=== PATIENT | female | born 1990 | race Hispanic/Latino ===

== ENCOUNTER 2022-07-02 23:57 | Inpatient (IN) | payer OTHER ==
[2022-06-30 10:21] LABS: Hemoglobin 13.5 g/dL (12.0-15.5); Platelet Count 247 10x3/uL (150-450)
[2022-06-30 11:07] LABS: Syphilis Antibody Nonreactive (Nonreactive); Syphilis Antibody Index 0.05 S/CO (<1.00 Non-Reactive)
[2022-06-30 11:09] LABS: HBSAg Index 0.14 S/CO (0-0.99); Hep B Surf Ag Non-Reactive S/CO (NonReactive)
[~2022-07-02 23:57] MED LIST: Acetaminophen 500 MG TAB PO PRN; Bicitra 30 ML UDCUP PO PRN; CEFAZOLIN 2 GM in Sodium Chloride 0.9% 100 ML IVPB SCH; Carboprost 250 MCG/ML AMP IM PRN; Diphenoxylate HCl/Atropine Tablet PO PRN; Famotidine/PF 20 mg/2ml Vial SLOW IVP PRN; Lactated Ringer's 1,000 ML IV SCH; Methylergonovine 0.2 MG/ML VIAL IM PRN; Misoprostol 200 MCG TAB PR PRN; NS w/ Oxytocin 30 units 500 ML IV SCH; Ondansetron PF 4 MG/2 ML Vial IVP PRN; Promethazine HCl 25 MG/ML VIAL IM PRN; Tranexamic Acid 1,000 MG/10 ML VIAL IVP PRN; hydrALAZINE 20 MG/ML VIAL SLOW IVP PRN
[2022-07-03] MEDS ORDERED: Meperidine HCl/PF 25 MG/ML VIAL SLOW IVP PRN (10:12)
[2022-07-03] MEDS ORDERED: diphenhydrAMINE 50 MG/ML VIAL IVP PRN (10:12)
[2022-07-03] MEDS ORDERED: Promethazine HCl 25 MG/ML VIAL IM PRN ×2 (10:12→19:56)
[2022-07-03] MEDS ORDERED: HYDROmorphone 2 MG/ML VIAL SLOW IVP PRN (10:12)
[2022-07-03] MEDS ORDERED: Fentanyl 100 MCG/2 ML VIAL SLOW IVP PRN (10:12)
[2022-07-03] MEDS ORDERED: Promethazine HCl 25 MG SUPP PR PRN (10:12)
[2022-07-03] MEDS ORDERED: Moisturizing Cream (Eucerin) 113 GM JAR TOP PRN (10:12)
[2022-07-03] MEDS ORDERED: Ondansetron HCl/PF 4 MG/2 ML Vial IVP PRN (10:12)
[2022-07-03] MEDS ORDERED: Naloxone HCl 0.4 mg/ml Vial IV PRN (10:12)
[2022-07-03] MEDS ORDERED: Ondansetron PF 4 MG/2 ML Vial IVP PRN ×2 (10:12→19:56)
[2022-07-03] MEDS ORDERED: Naloxone HCl 0.4 mg/ml Vial IVP PRN ×2 (10:12)
[2022-07-03] MEDS ORDERED: Communication Order-Pharmacy FS SCH (10:15)
[2022-07-03] MEDS ORDERED: Ketorolac Tromethamine 30 MG/ML VIAL IVP SCH (10:15)
[2022-07-03] MEDS ORDERED: Morphine PF 10 MG/10 ML VIAL ONE (11:22)
[2022-07-03] MEDS ORDERED: Fentanyl 100 MCG/2 ML VIAL ONE (11:22)
[2022-07-03] MEDS ORDERED: Dexamethasone 4 mg/ml Vial ONE (11:22)
[2022-07-03] MEDS ORDERED: Ondansetron PF 4 MG/2 ML Vial ONE (11:22)
[2022-07-03] MEDS ORDERED: Oxytocin 10 UNITS/ML VIAL ONE (11:22)
[2022-07-03] MEDS ORDERED: Famotidine/PF 20 mg/2ml Vial ONE (11:37)
[2022-07-03] MEDS ORDERED: CEFAZOLIN 2 GM VIAL ONE (11:37)
[2022-07-03] MEDS: Ketorolac Tromethamine 30 MG/ML VIAL IVP PRN (16:56)
[2022-07-03] MEDS ORDERED: Boostrix 0.5 ML (Tdap) VIAL (>/=7 yrs of age) IM ONE (19:56)
[2022-07-03] MEDS ORDERED: Bisacodyl 10 MG SUPP PR PRN (19:56)
[2022-07-03] MEDS ORDERED: diphenhydrAMINE 25 MG CAP PO PRN (19:56)
[2022-07-03] MEDS ORDERED: Varicella virus, LIVE 0.5 ML VIAL SC ONE (19:56)
[2022-07-03] MEDS ORDERED: Lanolin Ointment 7 GM TUBE TOP PRN (19:56)
[2022-07-03] MEDS ORDERED: hydrALAZINE 20 MG/ML VIAL SLOW IVP PRN (19:56)
[2022-07-03] MEDS ORDERED: Measles/Mumps/Rubella 10 MCG/0.5 ML VIAL SC ONE (19:56)
[2022-07-03] MEDS ORDERED: Methylergonovine 0.2 MG/ML VIAL IM PRN (19:56)
[2022-07-03] MEDS ORDERED: Misoprostol 200 MCG TAB PR PRN (19:56)
[2022-07-03] MEDS ORDERED: NS w/ Oxytocin 30 units 500 ML IV SCH (20:00)
[2022-07-03] MEDS: Docusate 100 MG CAP PO SCH (21:28)
[2022-07-03] MEDS ORDERED: Zolpidem Tartrate 5 MG TAB PO PRN (22:15)
[2022-07-04] MEDS: HYDROcodone/Acetaminophen 5/325 mg Tablet PO PRN ×4 (04:45→18:43)
[2022-07-04] MEDS: Ketorolac Tromethamine 30 MG/ML VIAL IVP PRN (04:46)
[2022-07-04 05:00] LABS: Hemoglobin 10.8 g/dL (12.0-15.5); Mean Corpuscular HGB CONC 34.2 g/dL (32.0-36.0); Mean Corpuscular Hemoglobin 30.9 pg (27.0-33.0); Mean Corpuscular Volume 90.5 fl (81.6-98.3); Mean Platelet Volume 11.1 fl (7.4-10.4); Platelet Count 190 10x3/uL (150-450); RBC Distribution Width 13.3 % (11.5-14.5); Red Blood Cell (RBC) Count 3.49 10x6/uL (3.90-5.03); White Blood Cell (WBC) Count 15.2 10x3/uL (3.5-10.5)
[2022-07-04] MEDS: Simethicone Chewable 80 MG TAB PO PRN ×3 (09:23→21:16)
[2022-07-04] MEDS: Prenatal Vitamin 1 TAB PO SCH (09:23)
[2022-07-04] MEDS: Docusate 100 MG CAP PO SCH ×2 (09:23→21:16)
[2022-07-04] MEDS: Ibuprofen 800 MG TAB PO SCH ×2 (13:05→21:16)
[2022-07-05] MEDS: HYDROcodone/Acetaminophen 5/325 mg Tablet PO PRN ×3 (00:10→13:02)
[2022-07-05] MEDS: Ibuprofen 800 MG TAB PO SCH (05:15)
[2022-07-05] MEDS: Docusate 100 MG CAP PO SCH (09:14)
[2022-07-05] MEDS: Prenatal Vitamin 1 TAB PO SCH (09:14)
[2022-07-05 11:19] VITALS: BP 110/72; TEMP 98.9
== END 2022-07-05 13:25 | disposition home or self-care (01) | DRG 788 ==
LOC: CSHLD 23:57 → UNDOADMIN 07-03 09:49 → CSHPP 07-03 14:45 → CSHLD 07-03 14:45
PROVIDERS: ADMIT Obstetrics & Gynecology; ATTEND Obstetrics & Gynecology
PROC: 10D00Z1 Extraction of Products of Conception, Low, Open Approach (ICD-10-PCS; principal; 2022-07-03)
PROC: 0UB90ZZ Excision of Uterus, Open Approach (ICD-10-PCS; 2022-07-03)
DX: O34.211 Maternal care for low transverse scar from previous cesarean delivery (principal); Z3A.39 39 weeks gestation of pregnancy; Z37.0 Single live birth; D25.9 Leiomyoma of uterus, unspecified; O34.13 Maternal care for benign tumor of corpus uteri, third trimester
CPT/HCPCS: 51702; 85014; 85018; 85027; 85049; 86780; 86850; 86900; 86901; 87340; 88305; J1100; J1885; J2274; J2405; J2590; J3010; J3490; S0028